=== PATIENT | female | born 1980 | race Caucasian/White ===

== ENCOUNTER 2016-10-26 23:44 | Emergency (ER) | payer SELFPAY ==
[~2016-10-26] VITALS: Ht 170.1 cm; Wt 90.7 kg
[~2016-10-26 23:44] MED LIST: AMOXICILLIN500 MG PO; ANAPROX DS550 MG PO; ANUSOL-HC25 MG RC; AVPAK AZITHROM250 M1 PO; BACTRIM DS 8001 TA1 PO; BENADRYL25 MG PO; CEPHALEXIN500 M1 PO; CIPRO250 MG PO; CIPRO500 MG PO; COLACE100 MG PO; CYCLOBENZAPRINE10 MG PO; DIFLUCAN150 MG PO; FLAGYL500 MG PO; FLEXERIL10 MG PO; FLEXERIL5 MG PO; HYDROCODONE BIT1 T11 PO; IBU-8800 MG PO; MEDROL DOSEPAK4 MG PO; NKHM; NKHM PO; Orphenadrine C100 MG PO; PERCOCET 325 MG1 TA2 PO; PERCOCET 325 MG1 TA5 PO; PREDNICOT20 MG PO; PYRIDIUM100 MG; PYRIDIUM200 MG PO; TOBREX OPHTH S2.5 ML OPH; TORADOL10 MG PO; ULTRAM50 MG PO; VICODIN ES 7501 TAB PO; ZOFRAN ODT4 MG SL
[2016-10-26 23:49] VITALS: BP 190/98
[2016-10-27] MEDS ORDERED: MEDROL DOSEPAK4 MG PO (02:12)
== END 2016-10-27 02:36 | disposition home or self-care (01) ==
LOC: ED 23:44
DX: S39.012A Strain of muscle, fascia and tendon of lower back, initial encounter (principal); F17.200 Nicotine dependence, unspecified, uncomplicated; Z88.6 Allergy status to analgesic agent; X58.XXXA Exposure to other specified factors, initial encounter; Y93.9 Activity, unspecified; Y92.9 Unspecified place or not applicable; Y99.9 Unspecified external cause status

== ENCOUNTER 2017-05-26 18:44 | Emergency (ER) | payer SELFPAY ==
[~2017-05-26] VITALS: Ht 170.1 cm; Wt 90.7 kg
[2017-05-26 18:54] VITALS: BP 144/90
[2017-05-26] MEDS ORDERED: NORCO 5-325 TA1 EACH PO (20:15)
== END 2017-05-26 21:15 | disposition home or self-care (01) ==
LOC: ED 18:44
DX: M48.54XA Collapsed vertebra, not elsewhere classified, thoracic region, initial encounter for fracture (principal); F17.200 Nicotine dependence, unspecified, uncomplicated; Z88.6 Allergy status to analgesic agent

== ENCOUNTER 2017-10-24 18:40 | Emergency (ER) | payer SELFPAY ==
[~2017-10-24] VITALS: Ht 170.1 cm; Wt 95.3 kg
[~2017-10-24 18:40] MED LIST changes: +NORCO 5-325 TA1 EACH PO
[2017-10-24 18:42] VITALS: BP 159/97
[2017-10-24] MEDS ORDERED: Motrin,Rufen800 MG PO (20:22)
== END 2017-10-24 20:43 | disposition home or self-care (01) ==
LOC: ED 18:40
DX: S60.051A Contusion of right little finger without damage to nail, initial encounter (principal); F17.200 Nicotine dependence, unspecified, uncomplicated; Z88.8 Allergy status to other drugs, medicaments and biological substances; Z79.899 Other long term (current) drug therapy; Z90.710 Acquired absence of both cervix and uterus; Z98.51 Tubal ligation status; W23.0XXA Caught, crushed, jammed, or pinched between moving objects, initial encounter; Y93.89 Activity, other specified; Y92.89 Other specified places as the place of occurrence of the external cause; Y99.8 Other external cause status

== ENCOUNTER 2019-07-10 12:22 | Emergency (ER) | payer SELFPAY ==
[~2019-07-10] VITALS: Ht 167.6 cm; Wt 79.4 kg
[~2019-07-10 12:22] MED LIST changes: +Motrin,Rufen800 MG PO; +PREDNISONE50 MG PO
[2019-07-10 12:24] VITALS: BP 136/83
[2019-07-10] MEDS ORDERED: PROAIR HFA8.5 GM INH (14:25)
[2019-07-10] MEDS ORDERED: PREDNISONE10 MG PO (14:25)
[2019-07-10] MEDS ORDERED: CLARITIN10 MG PO (14:25)
== END 2019-07-10 14:32 | disposition home or self-care (01) ==
LOC: ED 12:22
DX: J06.9 Acute upper respiratory infection, unspecified (principal); K21.9 Gastro-esophageal reflux disease without esophagitis; F17.200 Nicotine dependence, unspecified, uncomplicated; Z88.6 Allergy status to analgesic agent; Z79.899 Other long term (current) drug therapy

== ENCOUNTER 2020-09-17 07:35 | Emergency (ER) | payer SELFPAY ==
[~2020-09-17] VITALS: Wt 81.6 kg
[~2020-09-17 07:35] MED LIST changes: +CLARITIN10 MG PO; +PREDNISONE10 MG PO; +PROAIR HFA8.5 GM INH
[2020-09-17 07:41] VITALS: BP 153/78
[2020-09-17 08:22] LABS: BASO % 0.4 % (0.0-1.0); EOS # 0.1 10*3/uL (0.0-0.4); EOS % 1.5 % (1.0-4.0); HEMATOCRIT 44.7 % (37.0-47.0); LYMPH # 2.6 10*3/uL (1.3-4.4); LYMPH % 29.5 % (27.0-41.0); MEAN CORPUSCULAR HGB 30.5 pg (27.0-31.0); MEAN CORPUSCULAR HGB CONC 33.6 g/dl (33.0-37.0); MEAN PLATELET VOLUME 8.5 fl (9.6-12.3); MONO # 0.7 10*3/uL (0.1-1.0); MONO % 7.4 % (3.0-9.0); NEUT # 5.5 10*3/uL (2.3-7.9); PLATELET COUNT AUTOMATED 302 10*3/uL (130-400); RED BLOOD COUNT 4.91 10*6/uL (4.10-5.10); RED CELL DISTRI WIDTH 12.3 % (0-14.5)
[2020-09-17 08:33] LABS: ACT PARTIAL THROMBO TIME 28.1 SECONDS (20.0-32.1); INTERNATIONAL NORM RATIO 0.9 (2.0-3.5)
[2020-09-17 08:39] LABS: ALBUMIN 3.5 gm/dl (3.1-4.5); ALKALINE PHOSPHATASE 62 U/L (45-117); BUN 6 mg/dl (7-24); CHLORIDE 107 mmol/L (98-107); CREATININE 0.57 mg/dL (0.55-1.02); LIPASE 71 U/L (73-393); POTASSIUM 3.6 mmol/L (3.5-5.1); SGOT/AST 8 IU/L (3-35); SGPT/ALT 16 U/L (12-78); SODIUM 140 mmol/L (136-145); TOTAL PROTEIN 7.1 gm/dL (6.4-8.2)
[2020-09-17 08:44] LABS: TROPONIN I < 0.015 ng/ml (<0.045)
[2020-09-17] MEDS ORDERED: PREDNISONE20 M1 PO (09:31)
== END 2020-09-17 09:34 | disposition home or self-care (01) ==
LOC: ED 07:35
PROVIDERS: Emergency Medicine
DX: G51.0 Bell's palsy (principal); K21.9 Gastro-esophageal reflux disease without esophagitis; F41.9 Anxiety disorder, unspecified; Z79.899 Other long term (current) drug therapy; Z88.8 Allergy status to other drugs, medicaments and biological substances; Z90.711 Acquired absence of uterus with remaining cervical stump; Z98.51 Tubal ligation status; Z98.890 Other specified postprocedural states

== ENCOUNTER 2020-12-14 14:13 | Emergency (ER) | payer SELFPAY ==
[~2020-12-14] VITALS: Ht 170.1 cm; Wt 127.0 kg
[~2020-12-14 14:13] MED LIST changes: +PREDNISONE20 M1 PO
[2020-12-14 14:40] VITALS: BP 144/78
[2020-12-14 15:28] LABS: ACT PARTIAL THROMBO TIME 25.4 SECONDS (20.0-32.1); INTERNATIONAL NORM RATIO 0.9 (2.0-3.5)
[2020-12-14 15:35] LABS: ALBUMIN 3.3 gm/dl (3.1-4.5); ALKALINE PHOSPHATASE 77 U/L (45-117); BUN 7 mg/dl (7-24); CHLORIDE 106 mmol/L (98-107); CREATININE 0.64 mg/dL (0.55-1.02); POTASSIUM 3.8 mmol/L (3.5-5.1); SGOT/AST 17 IU/L (3-35); SGPT/ALT 19 U/L (12-78); SODIUM 136 mmol/L (136-145); TOTAL PROTEIN 7.3 gm/dL (6.4-8.2)
[2020-12-14 16:04] LABS: BASO # 0.1 10*3/uL (0.0-0.1); BASO % 0.7 % (0.0-1.0); EOS # 0.1 10*3/uL (0.0-0.4); EOS % 1.5 % (1.0-4.0); HEMATOCRIT 44.3 % (37.0-47.0); LYMPH # 3.4 10*3/uL (1.3-4.4); LYMPH % 45.3 % (27.0-41.0); MEAN CELL VOLUME 90.6 fl (81.0-99.0); MEAN CORPUSCULAR HGB 30.1 pg (27.0-31.0); MEAN CORPUSCULAR HGB CONC 33.2 g/dl (33.0-37.0); MEAN PLATELET VOLUME 8.7 fl (9.6-12.3); MONO # 0.8 10*3/uL (0.1-1.0); NEUT # 3.2 10*3/uL (2.3-7.9); NEUT % 42.4 % (47.0-73.0); PLATELET COUNT AUTOMATED 298 10*3/uL (130-400); RED BLOOD COUNT 4.89 10*6/uL (4.10-5.10); RED CELL DISTRI WIDTH 12.4 % (0-14.5); WHITE BLOOD COUNT 7.5 10*3/uL (4.8-10.8)
[2020-12-14] MEDS ORDERED: NEXIUM40 MG PO (16:41)
== END 2020-12-14 16:46 | disposition home or self-care (01) ==
LOC: ED 14:13
PROVIDERS: Physician Assistant
DX: K29.70 Gastritis, unspecified, without bleeding (principal); Z88.8 Allergy status to other drugs, medicaments and biological substances; Z79.899 Other long term (current) drug therapy; Z90.711 Acquired absence of uterus with remaining cervical stump

== ENCOUNTER 2022-06-26 09:42 | Emergency (ER) | payer SELFPAY ==
[~2022-06-26] VITALS: Wt 90.7 kg
[~2022-06-26 09:42] MED LIST changes: +NEXIUM40 MG PO
[2022-06-26 09:50] VITALS: BP 180/90
== END 2022-06-26 11:12 | disposition home or self-care (01) ==
LOC: ED 09:42
DX: B34.9 Viral infection, unspecified (principal); Z20.822 Contact with and (suspected) exposure to COVID-19; Z88.8 Allergy status to other drugs, medicaments and biological substances; Z98.51 Tubal ligation status; Z90.710 Acquired absence of both cervix and uterus

== ENCOUNTER 2023-07-02 19:15 | Emergency (ER) | payer SELFPAY ==
[~2023-07-02] VITALS: Ht 170.1 cm; Wt 83.9 kg
[2023-07-02 19:20] VITALS: BP 160/84
[2023-07-02] MEDS ORDERED: AMOX-CLAV 875-1 EACH PO (22:01)
== END 2023-07-02 22:10 | disposition home or self-care (01) ==
LOC: ED 19:15
DX: J32.9 Chronic sinusitis, unspecified (principal); H92.03 Otalgia, bilateral; K21.9 Gastro-esophageal reflux disease without esophagitis; F41.9 Anxiety disorder, unspecified; Z88.8 Allergy status to other drugs, medicaments and biological substances; Z90.710 Acquired absence of both cervix and uterus; Z98.51 Tubal ligation status; Z20.822 Contact with and (suspected) exposure to COVID-19; F17.210 Nicotine dependence, cigarettes, uncomplicated; Z98.890 Other specified postprocedural states

== ENCOUNTER 2024-12-15 16:10 | Emergency (ER) | payer SELFPAY ==
[~2024-12-15] VITALS: Wt 90.7 kg
[~2024-12-15 16:10] MED LIST changes: +AMOX-CLAV 875-1 EACH PO
[2024-12-15 16:18] VITALS: BP 148/80
[2024-12-15] MEDS ORDERED: hydrOXYzine hydrochloride 50 MG/ML VIAL IM ONE (16:25)
[2024-12-15] MEDS ORDERED: FAMOTIDINE 20 MG TAB PO ONE (16:25)
[2024-12-15] MEDS ORDERED: methylPREDNISolone acetate 80 MG/ML VIAL IM ONE (16:25)
[2024-12-15] MEDS ORDERED: HYDROXYZINE HCL25 MG PO (16:27)
[2024-12-15] MEDS ORDERED: PREDNISONE20 M1 PO (16:27)
[2024-12-15] MEDS ORDERED: PEPCID40 MG PO (16:27)
== END 2024-12-15 16:36 | disposition home or self-care (01) ==
LOC: ED 16:10
DX: L25.9 Unspecified contact dermatitis, unspecified cause (principal); Z88.6 Allergy status to analgesic agent; Z90.710 Acquired absence of both cervix and uterus